=== PATIENT | female | born 1990 | race Caucasian/White ===

== ENCOUNTER 2016-11-26 09:55 | Emergency (ER) | payer OTHER ==
[~2016-11-26] VITALS: Ht 170.2 cm; Wt 86.2 kg
[~2016-11-26 09:55] MED LIST: ANTIBIOTIC; DEPO-PROVER150 MG/ML INJ; DOCULAX; ERYTHROMYC3.5 GM OPT OD; VICODIN 5/1 TAB 5/50 PO
[2016-11-26 11:41] LABS: URINE SOURCE CLEAN CATCH
[2016-11-26 11:48] LABS: URINE APPEARANCE CLOUDY; URINE BILIRUBIN NEG (NEG); URINE BLOOD NEG (NEG); URINE COLOR YELLOW; URINE GLUCOSE NEG (NEG); URINE KETONE NEG (NEG); URINE LEUKOCYTE ESTERASE NEG (NEG); URINE NITRATE NEG (NEG); URINE PROTEIN NEG (NEG); URINE SPECIFIC GRAVITY 1.025 (1.003-1.035)
[2016-11-26 11:55] LABS: CULTURE INDICATED? NO
[2016-11-28 05:06] LABS: CHLAMYDIA TRACH Not Detected (Not Detected); N GONOR Not Detected (Not Detected)
== END 2016-11-26 12:28 | disposition home or self-care (01) ==
LOC: CFTX 09:55 → CED 09:55 → CFTX 10:54
PROVIDERS: Nurse Practitioner
DX: T23.122A Burn of first degree of single left finger (nail) except thumb, initial encounter (principal); T79.9XXA Unspecified early complication of trauma, initial encounter; K58.9 Irritable bowel syndrome, unspecified; X19.XXXA Contact with other heat and hot substances, initial encounter; Y92.009 Unspecified place in unspecified non-institutional (private) residence as the place of occurrence of the external cause
CPT/HCPCS: 16000; 81003; 84703; 87491; 87591; 87808; 87905; 99284